=== PATIENT | female | born 1995 | race American Indian/Alaskan Native ===

== ENCOUNTER 2017-10-07 11:31 | Emergency (ER) | payer MEDICAID, OTHER ==
[2017-10-07 11:38] VITALS: BP 118/84
--- NOTE | 2017-10-07 12:44 | Emergency Department Report ---
ED ENT HPI - General Chief complaint: Sore Throat Stated complaint: SORE THROAT Time Seen by Provider: 10/07/17 12:36 Source: patient Mode of arrival: Ambulatory Limitations: No Limitations - History of Present Illness Initial comments: 22-year-old -[place] female comes in for complaint of severe throat pain and left ear pain with difficulty swallowing and talking 1 week. Patient denies any nausea vomiting fever or chills. She did admit to headache is here for 3 days last week. She does admit to sneezing no coughing or runny nose no runny eyes. No past medical history currently takes no medications and has no known drug allergies. Patient's last menstrual period 10/05/2017. complaint: sore throat, ear pain -: week(s) (1) Location: L ear, throat Severity scale (0 -10): 9 Quality: burning, aching, sharp Consistency: constant Improves with: none Worsens with: swallowing Associated Symptoms: sore throat. denies: fever - Related Data Previous Rx's Medication Instructions Recorded Last Taken Type ALBUTEROL Inhaler [ProAir HFA 2 puff IH QID PRN #1 inhalation 03/23/14 Unknown Rx Inhaler] Azithromycin [Zithromax Z-JA] 250 mg PO DAILY #1 pkg 03/23/14 Unknown Rx Loratadine [Claritin] 10 mg PO DAILY #30 tablet 03/23/14 Unknown Rx Promethazine /Codeine 5 ml PO Q6H PRN #120 udc 03/23/14 Unknown Rx [Phenergan/Codeine 6.25-10 mg/5 ml] Amoxicillin 500 mg PO TID #30 capsule 10/07/17 Unknown Rx Allergies Allergy/AdvReac Type Severity Reaction Status Date / Time seafood Allergy Shortness Uncoded 11/29/13 23:36 of Breath ED Dental HPI - General Chief complaint: Sore Throat Stated complaint: SORE THROAT Time Seen by Provider: 10/07/17 12:36 Source: patient Mode of arrival: Ambulatory Limitations: No Limitations - Related Data Previous Rx's Medication Instructions Recorded Last Taken Type ALBUTEROL Inhaler [ProAir HFA 2 puff IH QID PRN #1 inhalation 03/23/14 Unknown Rx Inhaler] Azithromycin [Zithromax Z-JA] 250 mg PO DAILY #1 pkg 03/23/14 Unknown Rx Loratadine [Claritin] 10 mg PO DAILY #30 tablet 03/23/14 Unknown Rx Promethazine /Codeine 5 ml PO Q6H PRN #120 udc 03/23/14 Unknown Rx [Phenergan/Codeine 6.25-10 mg/5 ml] Amoxicillin 500 mg PO TID #30 capsule 10/07/17 Unknown Rx Allergies Allergy/AdvReac Type Severity Reaction Status Date / Time seafood Allergy Shortness Uncoded 11/29/13 23:36 of Breath ED Review of Systems ROS: Stated complaint: SORE THROAT Other details as noted in HPI Constitutional: denies: chills, fever Eyes: denies: eye pain, eye discharge, vision change ENT: ear pain, throat pain Respiratory: denies: cough, shortness of breath, wheezing Cardiovascular: denies: chest pain, palpitations Endocrine: no symptoms reported Gastrointestinal: denies: abdominal pain, nausea, diarrhea Genitourinary: denies: urgency, dysuria, discharge Musculoskeletal: denies: back pain, joint swelling, arthralgia Skin: denies: rash, lesions Neurological: headache Psychiatric: denies: anxiety, depression Hematological/Lymphatic: denies: easy bleeding, easy bruising ED Past Medical Hx - Past Medical History Previous Medical History?: No - Surgical History Past Surgical History?: No - Social History Smoking Status: Never Smoker Substance Use Type: None - Medications Home Medications: Home Medications Medication Instructions Recorded Confirmed Last Taken Type ALBUTEROL Inhaler [ProAir HFA 2 puff IH QID PRN #1 inhalation 03/23/14 Unknown Rx Inhaler] Azithromycin [Zithromax Z-JA] 250 mg PO DAILY #1 pkg 03/23/14 Unknown Rx Loratadine [Claritin] 10 mg PO DAILY #30 tablet 03/23/14 Unknown Rx Promethazine /Codeine 5 ml PO Q6H PRN #120 udc 03/23/14 Unknown Rx [Phenergan/Codeine 6.25-10 mg/5 ml] Amoxicillin 500 mg PO TID #30 capsule 10/07/17 Unknown Rx ED Physical Exam - General Limitations: No Limitations General appearance: alert, in no apparent distress - Head Head exam: Present: atraumatic, normocephalic - Expanded ENT Exam Expanded Ear exam: Present: normal external inspection Throat exam: Positive: tonsillar erythema, tonsillar exudate - Neck Neck exam: Present: normal inspection - Respiratory Respiratory exam: Present: normal lung sounds bilaterally. Absent: respiratory distress - Cardiovascular Cardiovascular Exam: Present: regular rate, normal rhythm. Absent: systolic murmur, diastolic murmur, rubs, gallop - GI/Abdominal GI/Abdominal exam: Present: soft, normal bowel sounds - Neurological Exam Neurological exam: Present: alert, oriented X3 - Psychiatric Psychiatric exam: Present: normal affect, normal mood - Skin Skin exam: Present: warm, dry, intact, normal color. Absent: rash ED Course Vital Signs 10/07/17 11:37 Temperature 98.3 F Pulse Rate 83 Respiratory 18 Rate Blood Pressure 118/84 [Right] O2 Sat by Pulse 100 Oximetry ED Medical Decision Making - Medical Decision Making Patient has been evaluated by this provider fast track. Strep culture was sent out which came back negative. Patient had exudate on exam or tonsils. I will treat her for pharyngitis. Patient verbalized understanding Critical care attestation.: If time is entered above; I have spent that time in minutes in the direct care of this critically ill patient, excluding procedure time. ED Disposition Clinical Impression: Pharyngitis Qualifiers: Pharyngitis/tonsillitis etiology: unspecified etiology Qualified Code(s): J02.9 - Acute pharyngitis, unspecified Disposition: DC-01 TO HOME OR SELFCARE Is pt being admited?: No Does the pt Need Aspirin: No Condition: Stable Instructions: Pharyngitis (ED) Additional Instructions: Please complete antibiotics as prescribed. Ibuprofen for pain control. Drink plenty of fluids and follow-up with her primary care provider if symptoms persist or gets worse. Prescriptions: Amoxicillin 500 mg PO TID #30 capsule Referrals: BRICE VILLAGOMEZ MD [Primary Care Provider] - 3-5 Days Forms: Work/School Release Form(ED)
== END 2017-10-07 12:55 | disposition home or self-care (01) ==
LOC: ED 11:31
DX: J02.9 Acute pharyngitis, unspecified (principal)
CPT/HCPCS: 87116; 87430

== ENCOUNTER 2019-01-30 13:49 | Emergency (ER) | payer OTHER ==
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
[2019-01-30 14:01] VITALS: BP 141/97
[2019-01-30 14:59] LABS: Bilirubin,Urine NEG (Negative); Blood,Urine SM (Negative); Color,Urine Yellow (Yellow); Mucus,Urine FEW /HPF; Protein,Urine <15 mg/dL mg/dL (Negative); Urobilinogen,Urine < 2.0 mg/dL (<2.0)
[2019-01-30 15:00] LABS: HCG Qualitative,Urine Negative (Negative)
[2019-01-30] MEDS ORDERED: IBUPROFEN PO ONE (15:21)
--- NOTE | 2019-01-30 16:26 | XRay Report ---
PROCEDURE: XR SPINE CERVICAL 2-3V TECHNIQUE: AP, lateral, and odontoid views of the cervical spine HISTORY: neck pain upt COMPARISONS: None . FINDINGS: The vertebral body heights and disc spaces are well maintained. Reversal of the cervical curvature ce ntered around C4-C5 is likely due to muscle spasm. No prevertebral soft tissue swelling is seen. The odontoid is intact. IMPRESSION: No acute bony abnormality. Cervical curvature reversal is likely due to muscle spasm This document is electronically signed by Karyn Mercado MD., January 30 2019 04:24:43 PM ET
[2019-01-30] MEDS ORDERED: FLEXERIL PO ONE (16:35)
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
== END 2019-01-30 16:51 | disposition home or self-care (01) ==
LOC: ED 13:49
DX: M62.838 Other muscle spasm (principal); M79.10 Myalgia, unspecified site; Z91.018 Allergy to other foods; V89.2XXA Person injured in unspecified motor-vehicle accident, traffic, initial encounter; Y93.89 Activity, other specified; Y92.89 Other specified places as the place of occurrence of the external cause; Y99.8 Other external cause status
CPT/HCPCS: 72040; 81001; 81025; 99283